=== PATIENT | female | born 1985 | race Caucasian/White ===

== ENCOUNTER → 2017-04-27 | Outpatient (CLI) | payer OTHER | LOC: M RAD 15:10 | DX: J31.0 Chronic rhinitis (principal) | CPT/HCPCS: 70486 ==

== ENCOUNTER → 2018-08-22 | Outpatient (CLI) | payer OTHER ==
[~2018-08-22] MED LIST: COLA100C5 PO; IRONTAB3 PO; ISOVUE-370 76% 100ML VIAL (Q9967) As Ordered ONE; MOTR200T44 PO; MUCI600T37 PO; NUPE1OIN2 TOP; PRE-TAB3 PO; PRENATAL VITAMIN PO; TYLE325T5 PO
--- NOTE | 2018-08-23 17:22 | REP ---
Clinical: Pulmonary nodule. Technique: Axial contrast enhanced images from the thoracic inlet to the upper abdomen with coronal and sagittal re-formations. Comparison: None. Findings: Noncalcified lobulated nodule in the periphery of the right middle lobe measuring approximately 15 mm maximal diameter with very subtle adjacent ground-glass opacity (images [id number]) and smaller area of micronodular changes inferiorly (images [id number]) suggest an inflammatory process and less likely neoplastic change. No further consolidation, nodule or mass lesion. No pleural effusion. No pneumothorax. Tracheobronchial tree is patent. No significant adenopathy. The mediastinum demonstrates normal thoracic aorta, pulmonary vasculature and heart/pericardium. Surrounding musculoskeletal structures are intact without focal osseous abnormality. Limited upper abdomen demonstrates normal bilateral adrenal glands. Impression: A 15 mm multilobulated nodule in the periphery of the right middle lobe with adjacent small focus of tree in bud/micronodular changes suggest inflammatory process and less likely neoplasm. Short-term 3-month follow-up examination is recommended to evaluate for resolution. Electronically Signed by Chetan Paulino MD 08/23/2018 05:13 P
== END ==
LOC: M RAD 13:16
PROVIDERS: ATTEND Family Medicine
DX: R91.1 Solitary pulmonary nodule (principal)
CPT/HCPCS: 71260; Q9967